=== PATIENT | male | born 2000 | race Caucasian/White ===

== ENCOUNTER 2022-02-15 00:09 | Emergency (ER) | payer SELFPAY ==
[~2022-02-15] VITALS: Ht 177.8 cm; Wt 66.7 kg
--- NOTE | 2022-02-15 00:09 | NUR ---
PT SHAMIR HU, TAKEN TO CHAIR
[2022-02-15 00:14] VITALS: BP 115/49
--- NOTE | 2022-02-15 00:22 | NUR ---
Patient being evaluated by physician at bedside.
--- NOTE | 2022-02-15 00:30 | NUR ---
PATIENT BIB [facility] DEPT. PATIENT EXAMINED BY DR. SAMANIEGO. PATIENT MEDICALLY CLEARED AND RELEASED IN CUSTODY IN STABLE CONDITION. ORIGINAL PRE-BOOK FORM GIVEN TO OFFICER JESSICA, #[id number].
== END 2022-02-15 00:30 ==
LOC: MED 00:09
DX: Z02.89 Encounter for other administrative examinations (principal); Z88.0 Allergy status to penicillin; V49.9XXA Car occupant (driver) (passenger) injured in unspecified traffic accident, initial encounter; Y93.89 Activity, other specified; Y92.89 Other specified places as the place of occurrence of the external cause; Y99.8 Other external cause status
CPT/HCPCS: 99283